=== PATIENT | female | born 1940 | race Caucasian/White ===

== ENCOUNTER 2022-11-09 12:32 | Outpatient (CLI) | payer MEDICARE, SELFPAY ==
--- NOTE | 2022-11-09 06:00 | DI.RAD_ITS ---
Exam(s) XR PAIN CLINIC LUMBAR SP 2V EXAM: XR PAIN CLINIC LUMBAR SP 2V CLINICAL HISTORY: DX: Lumbar Spondylosis. TECHNIQUE: 2D and realtime digital imaging was performed. CONTRAST MATERIAL: Oral barium Oral water soluble contrast was administered. COMPARISON: No exams were available for comparison FINDINGS: Fluoroscopy provided for pain management therapy. See procedure report for details. IMPRESSION: Fluoroscopy time 46.6 seconds RADIATION DOSE DELIVERED: Ka,r=5.86mGy
[2022-11-09 12:52] VITALS: BP 136/68; PULSE 85; RESP 20; TEMP 37; O2SAT 97
--- NOTE | 2022-11-09 13:56 | PDOC.PAIN ---
Date of service: 11/09/22 Time of Service: 13:56 Pain Managment Procedure Note Procedure Note Procedure Note: PROCEDURE NOTE Bilateral Lumbar Medial Branch Blocks Date of Service: November 09, 2022 Patient: ANDRY VALENTIN Provider: Jerry Whitley DO, MPH ANDRY VALENTIN has been [facility] for lumbar medial branch blocks. 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 Her symptoms are the same as they were. DISHA was interviewed and the medical records were reviewed. There were no medical, pharmacologic, radiographic or other structural contraindications to attempting fluoroscopically guided local anesthetic lumbar medial branch blocks. Risks and potential side effects were discussed. I also discussed the potential benefit(s) of the procedure with ANDRY, and voiced concerns were addressed. After ANDRY was completely informed about the procedure, the printed consent form was signed. A standard time-out procedure was performed. ANDRY was placed in the prone position on the fluoroscopy table. Automated blood pressure cuff and pulse oximeter were applied. The skin entry points for approaching the anatomic target points of the segmental medial branches of bilateral L3,L4,L5 were identified with fluoroscopy and marked. The skin at the target site area was thoroughly prepared with Chlorhexadine. The skin was then draped. Next, a 25 gauge 3.5 spinal needle was placed under fluoroscopic guidance down on to the target point (the articular pillar) for each respective segmental medial branch. Position was confirmed in A/P and lateral views. Aspiration revealed no blood or clear fluid. Next, 0.25ml of omnipaque 240 was injected at each level. No contrast following a vascular or neural pattern was visualized under continuous fluoroscopy. Next, 0.25 ml of preservative-free 0.5% bupivicaine was injected at each level. There was no unusual discomfort expressed by ANDRY. The needles were withdrawn without difficulty. (49 mls of Omnipaque was wasted) ANDRY was observed and was without hemodynamic, neurologic, or allergic reactions.? Fluoroscopic images were digitally archived. Provacative testing using the Modified Nicole's facet loading test- Left side Right Side Directly before the block VAS (0-10) = 7/10 VAS (0-10) = 7/10 Five minutes after the block VAS (0-10) = 1/10 VAS (0-10) = 1/10 Percentage relief obtained with this diagnostic block 85% 85% Any improved physical functioning directly after the blocks? Able to stand straight and bend with limited pain Follow up plans and appointments were discussed with ANDRY. ANDRY was instructed to keep careful note of how the usual pain was modified by these injections. Specifically, to keep a pain diary for the next 4 hours using a numeric pain scale of 0-10 and report these results. Post procedure instruction was given as documented in the nursing documentation and having met discharge criteria, the [facility] was [facility] Based on the medial branches blocked today, if they patient has adequate relief and we are able to proceed to radiofrequency ablation, the treatment should result in the denervation of the bilateral L4-L5 and L5-S1 facet joints. We would expect to denervate a total of 4 facets during the radiofrequency ablation. COMMENTS: No apparent complications. Post-procedure pain: VAS= 1/10 ANDRY will call back with 0-4 hour post-procedure pain scores. I personally performed the entire procedure. JERRY WHITLEY DO, MPH ABPM&R-subspecialty board certification in Pain Medicine [facility] [facility]
[2022-11-09 14:01] VITALS: BP 143/73; PULSE 91; RESP 15; O2SAT 100
[2022-11-09] MEDS: Omnipaque 240 MG/ML 50 ML BTL IJ (14:03)
[2022-11-09] MEDS: Bupivacaine 0.5% Pres-Free 10 ML VIAL IJ (14:03)
== END 2022-11-09 12:33 | disposition home or self-care (01) ==
PROVIDERS: Visit Provider Preventive Medicine Occupational Medicine
DX: M54.50 Low back pain, unspecified (principal); M47.816 Spondylosis without myelopathy or radiculopathy, lumbar region
CPT/HCPCS: 64493; 64494; 72100; Q9967

== ENCOUNTER → 2024-12-05 13:55 | Outpatient (BNVA) | payer MEDICARE, SELFPAY | PROVIDERS: Visit Provider Physician Assistant | DX: M17.11 Unilateral primary osteoarthritis, right knee (principal) | CPT/HCPCS: 99213; 20610; J1010 ==